=== PATIENT | male | born 1955 | race Two or more races ===

== ENCOUNTER 2016-05-26 08:51 | Day surgery (SDC) | payer OTHER ==
[~2016-05-26] VITALS: Ht 177.8 cm; Wt 86.6 kg
[2016-05-26 09:49] VITALS: Ht 177.8 cm; Wt 86.6 kg
[2016-05-26] MEDS ORDERED: PRAV20TA63 PO (09:57)
[2016-05-26] MEDS ORDERED: LISI20TA11 PO (09:57)
[2016-05-26] MEDS ORDERED: BACL10TA PO (09:57)
[2016-05-26] MEDS ORDERED: ALPR1TAB7 PO (09:57)
[2016-05-26] MEDS ORDERED: GABA300C16 PO (09:57)
[2016-05-26] MEDS ORDERED: TRAM-40 PO (09:57)
[2016-05-26] MEDS ORDERED: POLY17PO6 PO (09:57)
[2016-05-26] MEDS ORDERED: OMEP20CA16 PO (09:57)
[2016-05-26 10:30] VITALS: BP 143/73; PULSE 87; RESP 18
[2016-05-26] MEDS ORDERED: LIDOCAINE 2% (SDV) 5 ML INJ ONE (10:31)
[2016-05-26] MEDS ORDERED: PROPOFOL 40 ML ONE (10:31)
[2016-05-26] MEDS ORDERED: PHENYLephrine (100 MCG/ML) 5ML SYG ONE (10:55)
[2016-05-26 11:35] VITALS: BP 132/71; PULSE 78; RESP 14
--- NOTE | 2016-05-26 23:21 | GILP ---
DATE OF PROCEDURE: NAME OF PROCEDURE: Colonoscopy and biopsy. SURGEON: Promise Parada MD PREOPERATIVE DIAGNOSIS: Screening colonoscopy. POSTOPERATIVE DIAGNOSES: 1. Colonoscopy all the way to the cecum. 2. Two small sigmoid colon polyps were removed using the biopsy forceps. 3. Internal hemorrhoids. INDICATION FOR THE PROCEDURE: Mr. Sean Stephen is a 60-year-old male patient who was schedul ed for screening colonoscopy. The procedure and possible complications are well explained to the patient. He understood and conse nted to the procedure. DESCRIPTION OF PROCEDURE: Under the influence of anesthesia, the colonoscope was carefully introduc ed in the rectum, and under direct vision, it was advanced all the way to the cecum. FINDINGS: The patient had 2 small sigmoid colon polyps, and they were removed using the biopsy forc eps. He was noted to have internal hemorrhoids. He tolerated the procedure very well. There was no complication from the procedure. At the end of the procedure, he was awake with stable vital signs, and he was discharged home to the care of his [facility]. IMPRESSION: 1. Colonoscopy all the way to the cecum. 2. Two small sigmoid colon polyps were removed using the biopsy forceps. 3. Internal hemorrhoids. PLAN: 1. Await histopathology report. 2. Next screening colonoscopy in 10 years. Dictated By: PROMISE MURRAY/RASHID Conf#: [id number] DID#: [id number]
== END 2016-05-26 11:51 | disposition home or self-care (01) ==
LOC: GIL 08:51
PROVIDERS: ATTEND Internal Medicine Gastroenterology
DX: Z12.11 Encounter for screening for malignant neoplasm of colon (principal); D12.5 Benign neoplasm of sigmoid colon; K64.8 Other hemorrhoids; I10 Essential (primary) hypertension; E78.5 Hyperlipidemia, unspecified
CPT/HCPCS: 45380; 88305; J2370